=== PATIENT | male | born 2000 | race Caucasian/White ===

== ENCOUNTER 2024-12-19 09:30 | Emergency (ER) | payer OTHER, SELFPAY ==
--- NOTE | 2024-12-19 09:38 | ED_ITS ---
HPI - General Adult General Chief complaint: Back Pain/Injury Stated complaint: Lower back pain Time Seen by Provider: 12/19/24 09:38 Source: patient and silk hanger (all interactions with this patient were facilitated with an [facility] bacteriologist soil) Mode of arrival: ambulatory Limitations: language barrier (all interactions with this patient were facilitated with an [facility] bacteriologist soil) History of Present Illness ED Provider: Anette Grijalva PA-C HPI narrative: Patient is a 24 year old assigned male at with a history of low back pain with lifting presenting to the emergency department today with an episode of low back pain with lifting. Patient states that he was lifting heavy items at work and developed pain in his low back. Patient denies any dizziness, lightheadednes s, abdominal pain, nausea, vomiting, fever, chills, blurry vision, double vision, loss of vision, chest pain, difficulty breathing, shortness of breath, night sweats, pain with urination, increased urinary frequency, increased urinary urgency, blood in his urine or stool, syncope or a near syncopal episode, bowel incontinence, bladder incontinence, or any other complaints at this time. Relieving factors: none Exacerbating factors: none Associated symptoms: denies other symptoms Treatments prior to arrival: none Related Data Previous Rx's ?Medication ?Instructions ?Recorded cyclobenzaprine 5 mg tablet 5 mg PO TID PRN muscle spa sm 7 12/19/24 days #21 tabs prednisone 20 mg tablet 20 mg PO DAILY 7 days #7 tab s 12/19/24 Allergies Allergy/AdvReac Type Severity Reaction Status Date / Time No Known Allergies Allergy Verified 12/19/24 09:56 Review of Systems Constitutional: Constitutional: Reports no additional constitutional complaints, Denies chills, Denies fever(s) and Denies night sweats Eyes: Eyes: Reports no additional eye complaints, Denies blurry vision, Denies change in vision, Denies diplopia, Denies eye discharge, Denies loss of vision and Denies eye pain ENT: Denies dizziness Cardiovascular: Cardiovascular: Reports no additional cardiovascular complaints, Denies chest pain, Denies lightheadedness, Denies Loss of Consciousness and Denies dyspnea Respiratory: Respiratory: Reports no additional respiratory complaints and Denies dyspnea Gastrointestinal: Gastrointestinal: Reports no additional gastrointestinal complaints, Denies abdominal pain, Denies melena, Denies hematochezia, Denies change in bowel habits and Denies change in stool character Genitourinary: Genitourinary: Reports no additional male genitourinary complaints, Denies hematuria, Denies oliguria, Denies difficulty urinating, Denies dysuria, Denies urinary frequency, Denies urinary hesitancy, Denies urinary incontinence and Denies urinary urgency Musculoskeletal: Musculoskeletal: Reports no additional musculoskeletal complaints, Reports back pain, Denies numbness and Denies tingling Neurologic: Denies dizziness, Denies loss of vision, Denies numbness and Denies tingling Psychiatric: Psychiatric: Reports no additional psychiatric complaints Endocrine: Endocrine: Reports no additional endocrine complaints Hematologic/Lymphatic: Hematologic/Lymphatic: Reports no additional hematologic/lymphatic complaints Allergic/Immunologic: Allergic/Immunologic: Reports no additional allergic/immunologic complaints PMFSH Past Medical History Attestation statement: The following information was validated with the patient. Source: old records reviewed and nursing notes reviewed Social History Social History Alcohol intake: current Smoked in Last 30 Days: No Use of substances other than those prescribed or required for medical reasons: No Advance Directives: No Advance Directives Information Provided: Yes Physical Exam ED Vital Signs: Vital Signs - 24 hr 12/19/24 09:54 12/19/24 10:30 Temperature 97.6 F 97.6 F Pulse Rate 61 61 Respiratory Rate 16 16 Blood Pressure 109/83 109/83 Pulse Oximetry 96 96 Oxygen Delivery Method Room Air Room Air BMI result Body Mass Index 32.0 Const General: cooperative, no acute distress, alert and awake Nutritional Appearance: well nourished Orientation/consciousness: patient oriented x3 HENMT Head: Yes normal to inspection and Yes atraumatic Ears: hearing grossly normal bilaterally and external ears normal General nose exam: Normal external nose present, no nasal discharge noted and no epistaxis Face and sinus: Yes normal facial exam, No abrasion and No laceration Mouth: Normal oral and palatal mucosa present, no drooling and no muffled voice Eyes General: appearance normal, both eyes and all related structures Periorbital: periorbital findings normal Eyelids: Yes eyelids normal Conjunctivae: conjunctivae normal Pupils: Equal, round and reactive pupils present EOM: EOMs intact bilaterally Neck Neck: Yes normal visual inspection, Yes full ROM and Yes no lymphadenopathy Resp Effort & Inspection: normal respiratory effort and able to speak in complete sentences Neuro General: patient oriented x3, moves all extremities and CN's II-XI intact bilaterally Cranial nerves: Yes Equal, round and reactive pupils present Cognition (Neuro): normal cognition Extrem General: Yes normal to inspection, Yes full ROM and Yes capillary refill normal Psych Appearance: grossly normal Mental Status: mental status grossly normal Affect: normal affect Attitude: cooperative Thought process: Normal thought process present Thought content: Normal thought content present Insight: Good insight present (Psych) Medical Decision Making Medical Decision Making MDM Narrative: Patient is a 24 year old assigned male at with a history of low back pain with lifting presenting to the emergency department today with an episode of low back pain with lifting. Patient's physical exam was unremarkable. I explained my physical exam findings to the patient. I answered all questions asked by the patient. I stressed the importance of the patient taking his medication as directed (either prescribed or as the over the counter packaging recommends). I stressed the importance of the patient following up with his primary care provider. I stressed the importance of the patient returning to the emergency department immediately if his symptoms were to worsen or if he were to develop any dizziness, shortness of breath, difficulty breathing, chest pain, blurry vision, loss of vision, nausea, vomiting, abdominal pain, fever, chills, back pain, or any other complaints. Patient verbalized agreement and understanding with this treatment plan and discharge. Differential Diagnosis Differential Diagnoses: The differential diagnosis associated with the presentation includes Low back pain Acute on chronic low back pain Low back strain Admission/Observation Consideration of admission/observation: Escalation of care including admission/o bservation considered Patient would have been admitted to the hospital had his clinical presentation warranted hospital admission. Tests considered The following testing was considered but not selected: I considered obtaining a lumbar x-ray however, the patient's current clinical presentation and mechanism of injury did not warrant this. I discussed this with the patient who verbalized understanding and agreement. Prescription Management I considered prescription management with: Pain Medication (patient prescribed pain medication) Discharge Plan Discharge Clinical Impression: Strain of lumbar region Patient Disposition: Home, Self-Care Instructions: Back Pain (ED), Lower Back Exercises (ED) Additional Instructions: Given this was a work place injury - you should follow up with [facility]. Dado que se trat? de aníbal lesi?n en el lugar de trabajo, debe hacer un seguimiento con [facility]. Follow up with your primary care provider. Return to the emergency department immediately if your symptoms worsen or if you develop any dizziness, shortness of breath, difficulty breathing, chest pain, blurry vision, loss of vision, nausea, vomiting, abdominal pain, fever, chills, back pain, or any other complaints. Yu?seguimiento?con perez m?dico de atenci?n primaria. Acuda inmediatamente al servicio de urgencias si jose s?ntomas empeoran o si presenta falta de aliento, dificultad para respirar, dolor tor?cico, mareos, aturdimiento, dolor de espalda, dolor abdominal, fiebre, escalofr?os o cualquier otro s?ntoma. If you do not have a primary care provider - call any of the below numbers to establish and follow up with a primary care provider. Si no tiene un proveedor de atenci?n primaria, llame a cualquiera de los n?meros que aparecen a continuaci?n para establecer y hacer seguimiento con un proveedor de atenci?n primaria. [facility] ([place]) [phone] [address] [facility] [place], [address] [facility] Primary Care ([address] [place]) [phone] [place] [address], [address] [facility], [address] [facility] Care ([address] [place]) [phone] [place] [address], [address] [facility], [address] [facility] Primary Care ([place]) [phone] [place] [address], [address] [facility], [address] [facility] Family Medicine [phone] [place] [address], [address] Please see the information below about our Patient Portal. If you are not yet enrolled in the [facility] Patient Portal, you will receive an enrollment email invitation following your visit to any [facility] care setting. You may also self-enroll in the Patient Portal by visiting our website: [email or web address] The following information is required to access the Patient Portal: - Your [facility] Medical Record Number - Your personal home email address (must match what is in your electronic medical record, Registration staff can assist with this) - Name - Date of Capabilities of the Patient Portal: - Message some providers - View upcoming appointments - Access your health summary, medical history, and visit history - View current conditions and allergies - View procedure and lab results - View your medications, including guidelines, side effects, and precautions - Complete pre-appointment questionnaires requested by your provider - Ready summary reports of your office visits and procedures To access the Patient Portal Mobile Sebastian, follow these directions: - Search Robotgalaxy in the Sebastian Store or [email or web address] Store - Download the Sebastian - Search for [facility] - Enter your login/password Portal del paciente Si usted no esta inscrito en el portal de pacientes de [facility], recibira aníbal invitacion de inscripcion despues de perez visita al [facility] o al [facility] via correo electronico. Tambien puede inscribirse voluntariamente en el portal de pacientes visitando nuestra pagina web: [email or web address] La siguiente informacion sera requerida para acceder al portal: - Perez desiree de historia medica de [facility] - Perez direccion de correo electronico personal - Nombre - Fecha de nacimiento Capacidades: Las siguientes capacidades estan disponibles en el portal de pacientes: - Enviar mensajes a algunos doctores - Verificar proximas citas - Acceso a perez historial de amanda, registro medico e historial de visitas - Omari las condiciones actuales y alergias omari procedimientos y resultados del laboratorio - Omari jose medicamentos, incluyendo las pautas - Efectos secundarios y precauciones - Completar o llenar formularios / cuestionarios de - Citas solicitadas por perez doctor - Leer los resumenes de reportes medicos de jose visitas y procedimientos [place] acceder a la aplicacion movil: - Darren Rally Fite[employer] en la Sebastian Store o Google DA Relm [employer] Store - Descargue la aplicacion - [facility] - Ingrese perez nombre de usuario / Contrasena Prescriptions: New prednisone 20 mg tablet 20 mg PO DAILY 7 Days Qty: 7 0RF cyclobenzaprine 5 mg tablet 5 mg PO TID PRN (Reason: muscle spasm) 7 Days Qty: 21 0RF Referrals: [facility] [Provider Group] Stand Alone Forms: Work/School Release Interventions: ED Discharge Assessment Last Done: 12/19/24 10:30 Discharge Date/Time: 12/19/24 10:31 Print Language: Cambodian
[2024-12-19 09:54] VITALS: BP 109/83; PULSE 61; RESP 16; TEMP 36.4; O2SAT 96; BMI 32.0
--- NOTE | 2024-12-19 10:00 | PC.NURSE ---
Patient presents from work after lifting something heavy and injuring his lower back. Alert and oriented, Primarily arabic speaking. Family Intervention Specialist used. Lungs clear bilat. Respirations even and non-labored. c/o lower back when straightening. Abdomen soft, non-tender with positive bowel sounds. Positive pedal pulses with no edema.
[2024-12-19 10:30] VITALS: BP 109/83; PULSE 61; RESP 16; TEMP 36.4; O2SAT 96
--- OUTSIDE RECORDS SUMMARY | 2024-12-19 11:11 | XMS_ITS | Clinical Summary ---
Author Organization [employer] Address [address] [facility] [address] [place] [address] Care Team Providers Care Residential Real Estate Appraiser Name Role Phone Unavailable Primary Care Provider Unavailabl e Active Problems Problem Noted Date Diagnosed Date Recurrent major depressive disorder 08/22/2024 Social History Tobacco Use Types Packs/Day Years Used Date Smoking Tobacco: Never Assessed Depression Answer Date Recorded Patient Health Questionnaire-9 Score 6 08/22/2024 Patient Health Questionnaire-9 Score 6 08/22/2024 Last PHQ-9: Questionnaire Data Not on file 0 08/22/2024 Depression Answer Date Recorded Patient Health Questionnaire-2 Score 2 08/22/2024 Sex and Gender Information Value Date Recorded Sex Assigned at Male 03/29/2022 10:15 AM EDT Legal Sex Male 10:15 AM EDT Gender Identity Choose not to disclose 10:15 AM EDT Sexual Orientation Choose not to disclose 2021 10:15 AM EDT Plan of Treatment Health Maintenance Due Date Last Done Comments HIV Screening 1998 SDOH Screening 1998 Disability Screening 1998 Alcohol/Substance Use Screening 2010 Tobacco Screening 2010 Family Planning (PISQ) 2013 HPV Vaccines (1 - 3-dose series) 2013 Hepatitis C Screening 2016 DTaP/Tdap/Td Vaccines (1 - Tdap) 2017 Hepatitis B Vaccines (1 of 3 - 19+ 3-dose series) 2017 COVID-19 Vaccine ( - 2023-2 5 season) 2024 Influenza Vaccine (#1) 2025 07/29/2017 Depression Screening 08/22/2025 08/22/2024, 08/22/2024 Zoster Vaccines (1 of 2) 2048 RSV Patients and Patients Aged 60 years or older (1 - 1-dose 75+ series) 2073 HIB Vaccines Aged Out No longer eligi ble based on patient's age to complete this topic Hepatitis A Vaccines Aged Out No long er eligible based on patient's age to complete this topic IPV Vaccines Aged Out No longer eligi ble based on patient's age to complete this topic Meningococcal B Vaccine Aged Out No l onger eligible based on patient's age to complete this topic Meningococcal Vaccine Aged Out No raya solo eligible based on patient's age to complete this topic Pneumococcal Vaccine: Pediatrics (0 to 5 Years) and At-Risk Patients (6 to 49) Years Aged Out No longer eligible b ased on patient's age to complete this topic RSV under 20 months Aged Out No longe r eligible based on patient's age to complete this topic Rotavirus Vaccines Aged Out No longer eligible based on patient's age to complete this topic Insurance [facility]
== END 2024-12-19 10:31 | disposition home or self-care (01) ==
PROVIDERS: Emergency Provider Emergency Medicine
DX: S39.012A Strain of muscle, fascia and tendon of lower back, initial encounter (principal); M54.2 Cervicalgia; X58.XXXA Exposure to other specified factors, initial encounter; Y93.9 Activity, unspecified; Y92.9 Unspecified place or not applicable; Y99.8 Other external cause status
CPT/HCPCS: 99283; 99284

== ENCOUNTER 2025-03-29 13:37 | Outpatient (REF) | payer OTHER, SELFPAY ==
--- NOTE | ~2025-03-29 | XR_ITS ---
EXAMINATION: XR LUMBOSACRAL SPINE CLINICAL INFORMATION: pain with lifting carrying COMPARISON: None available. TECHNIQUE: AP and lateral views. FINDINGS: No acute cortical disruption. 4 m retrolisthesis at L5-S1. Mild S-shaped curvature of the lumbar spine.. No lytic or blastic lesions. XR/XR lumbar spine 2-3V IMPRESSION: Grade 1 retrolisthesis L5-S1. Spondylolysis pars interarticularis cannot be excluded. Electronically signed by: Bruce Ambrosio MD 03/29/2025 03:36 PM EDT
--- OUTSIDE RECORDS SUMMARY | 2025-03-29 13:00 | XMS_ITS | Encounter Summary ---
Author Organization [employer] Address [address] [facility] [address] [place] [address] Care Team Providers Care Chain Maker Hand Name Role Phone Unavailable Primary Care Provider Unavailabl e Reason for Referral * Consultation (Routine) - Pending Review Specialty Diagnoses / Procedures Referred By Hany cuevas Referred To Contact Physical Therapy Diagnoses Chronic left SI joint pain Anitha Rivero MD [address] [place] [phone] Phone: tel: fax: Referral ID Status Reason Start Date Expiration Date Visits Requested Visits Authorized [id number] Pending Review Specialty Services Required 03/29/2026 1 1 Reason for Visit * Reason Comments new pt Encounter Details Date Type Department Care Team (Late st Contact Info) Description 03/29/2025 1:00 PM EDT Office Visit [facility] MEDICINE [address] [place] [phone] Anitha Rivero MD [address] [place] [id number] Chronic left SI joint pain (Primary Dx); Dietary counseling; Exercise counseling; Overweight Social History Tobacco Use Types Packs/Day Years Used Date Smoking Tobacco: Never Assessed Depression Answer Date Recorded Patient Health Questionnaire-9 Score 0 03/29/2025 Patient Health Questionnaire-9 Score 0 03/29/2025 Last PHQ-9: Questionnaire Data Not on file 1 Housing Stability Answer Date Recorded What is your housing situation today? I have cyril avery 03/29/[address] you li ve. Do you have problems with any of the following? None of the above 03/29/2025 Food Insecurity Answer Date Recorded Within the past 12 months, y ou worried that your food would run out before you got money to buy more: Never True 03/29/2025 Within the past 12 months,th e food you bought just didn't last and you didn't have enough money to get more: Never True Transportation Answer Date Recorded In the past 12 months, has l ack of transportation kept you from medical appts, meetings, work or from getting things needed for daily living? No 03/29/2025 Utilities Answer Date Recorded In the past 12 months, has t he electric, gas, oil or water company threatened to shut off services in your home? No 03/29/2025 Depression Answer Date Recorded Patient Health Questionnaire-2 Score 0 03/29/2025 Internet Access Answer Date Recorded Internet Access Q1 No 03/29/2025 Internet Access Q2 I do not want or need it 03/01 Sex and Gender Information Value Date Recorded Sex Assigned at Male 03/29/2022 10:15 AM EDT Legal Sex Male 10:15 AM EDT Gender Identity Choose not to disclose 10:15 AM EDT Sexual Orientation Choose not to disclose 2021 10:15 AM EDT documented as of this encounter Last Filed Vital Signs Vital Sign Reading Time Taken Comments Blood Pressure 100/72 03/29/2025 1:11 PM EDT Pulse 72 03/29/2025 1:11 PM EDT Temperature 36.3 C (97.4 F) 03/29/2025 1:11 PM EDT Respiratory Rate 20 03/29/2025 1:11 PM EDT Oxygen Saturation - - Inhaled Oxygen Concentration - - Weight 105 kg (230 lb 12.8 oz) 03/29/2025 1:11 P M EDT Height 185.4 cm (6' 1 ) 03/29/2025 1:11 PM EDT Body Mass Index 30.45 03/29/2025 1:11 PM EDT documented in this encounter Functional Status * Over the past 2 weeks, how often have you been bothered by any of the following problems? Question Answer Date of Assessment Author Patient Health Questionnaire-2 Score 0 03/01 2:03 PM EDT Mallika Noriega MA * Little interest or pleasure in doing things Answer Date of Assessment Author Not at all 03/29/2025 2:03 PM EDT Mallika Noriega MA * Feeling down, depressed, or hopeless Answer Date of Assessment Author Not at all 03/29/2025 2:03 PM EDT Mallika Noriega MA * Trouble falling or staying asleep, or sleeping too much Answer Date of Assessment Author Not at all 03/29/2025 2:03 PM EDT Mallika Noriega MA * Feeling tired or having little energy Answer Date of Assessment Author Not at all 03/29/2025 2:03 PM EDT Mallika Noriega MA * Poor appetite or overeating Answer Date of Assessment Author Not at all 03/29/2025 2:03 PM EDT Mallika Noriega MA * Feeling bad about yourself - or that you are a failure or have let yourself or your family down Answer Date of Assessment Author Not at all 03/29/2025 2:03 PM EDT Mallika Noriega MA * Trouble concentrating on things, such as reading the newspaper or watching television Answer Date of Assessment Author Not at all 03/29/2025 2:03 PM EDT Mallika Noriega MA * Moving or speaking so slowly that other people could have noticed? Or the opposite - being so fidgety or restless that you have been moving around a lot more than usual. Answer Date of Assessment Author Not at all 03/29/2025 2:03 PM EDT Mallika Noriega MA * Thoughts that you would be better off or hurting yourself in some way Answer Date of Assessment Author Not at all 03/29/2025 2:03 PM EDT Mallika Noriega MA * Patient Health Questionnaire-9 Score Answer Date of Assessment Author 0 03/29/2025 2:03 PM EDT Mallika Noriega MA * Over the last 2 weeks, how often have you been bothered by any of the following problems? Question Answer Date of Assessment Author Feeling nervous, anxious, or on edge 0 03/01 2:04 PM EDT Mallika Noriega MA Not being able to stop or co ntrol worrying 0 03/29/2025 2:04 PM EDT Noriega, Mallika, M A Worrying too much about diff erent things 0 03/29/2025 2:04 PM EDT Noriega, Mallika Charlene A Trouble relaxing 0 03/29/2025 2:04 PM EDT M Mallika de leon MA Being so restless that it is hard to sit still 0 03/29/2025 2:04 PM EDT NoriegaMallika reagan Charlene A Becoming easily annoyed or irritable 0 03/01 2:04 PM EDT Mallika Noriega PUSHPA Feeling afraid as if somethi ng awful might happen 0 03/29/2025 2:04 PM EDT NoriegaMallika M A EMMANUEL-7 Total Score 0 03/29/2025 2:04 PM EDT Mallika Noriega PUSHPA documented as of this encounter Plan of Treatment Scheduled Orders Name Type Priority Associated Diagnoses Orde r Schedule Comprehensive Metabolic Panel Lab Routine Overweight Expected: 03/29/2025 (Approximate), Expires: 03/29/2026 CBC auto differential Lab Routine Overweight Expected: 03/29/2025 (Approximate), Expires: 03/29/2026 XR Lumbar Spine Complete 4+ Views Imaging Routine Chronic left SI joint pain Expected: 03/29/2025, Expires: 03/29/2026 Scheduled Referrals Name Type Priority Associated Diagnoses Orde r Schedule Referral to Physical Therapy Outpatient Referral Routine Chronic left SI joint pain Expected: 03/29/2025 (Approximate), Expires: 03/29/2026 documented as of this encounter Visit Diagnoses Diagnosis Chronic left SI joint pain- Primary Disorders of sacrum Dietary counseling Dietary surveillance and counseling Exercise counseling Overweight documented in this encounter Additional Health Concerns Assessment Noted Time PHQ-9 Depression Total Score: 0 03/29/20 25 2:03 PM EDT documented as of this encounter
--- OUTSIDE RECORDS SUMMARY | 2025-03-29 14:36 | XMS_ITS | Encounter Summary ---
Author Organization [employer] Address [address] [facility] [address] [place] [address] Care Team Providers Care Gear Tester Name Role Phone Unavailable Primary Care Provider Unavailabl e Reason for Visit * Reason Onset Date Comments chart prep 03/28/2025 Encounter Details Date Type Department Care Team ([facility] st Contact Info) Description 03/28/2025 Telephone [facility] MEDICINE [address] [place] [address] Anitha Rivero MD [address] [place] [address] chart prep Social History Tobacco Use Types Packs/Day Years Used Date Smoking Tobacco: Never Assessed Depression Answer Date Recorded Patient Health Questionnaire-9 Score 0 03/29/2025 Patient Health Questionnaire-9 Score 0 03/29/2025 Last PHQ-9: Questionnaire Data Not on file 1 Housing Stability Answer Date Recorded What is your housing situation today? I have cyrilankush avery 03/29/[address] you [...] AM EDT documented as of this encounter Miscellaneous Notes * Telephone Encounter - aJron Sanders MA - 03/28/2025 9:57 AM EDT Chart Prep Labs: not applicable Images: not applicable Referrals: not applicable Vaccines due: Covid, Flu, Hep B, and DTAP Screenings: not applicable Overdue care gaps: SBIRT, SDOH, Disability screen, and Tobacco documented in this encounter Plan of Treatment Not on file documented as of this encounter Visit Diagnoses Not on filedocumented in this encounter Additional Health Concerns Assessment Noted Time PHQ-9 Depression Total Score: 9 01/09/20 25 11:34 AM EDT documented as of this encounter
--- OUTSIDE RECORDS SUMMARY | 2025-03-29 14:36 | XMS_ITS | Encounter Summary ---
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 Role Phone Unavailable Primary Care Provider Unavailabl e Encounter Details Date Type Department Care Team (Latest Contact Info) Description 03/29/2025 Travel Social History Tobacco Use Types Packs/Day Years [...] AM EDT documented as of this encounter Functional Status * Over the [...] ntrol worrying 0 03/29/2025 2:04 PM EDT Mallika Noriega M A Worrying too much about diff erent things 0 03/29/2025 2:04 PM EDT Mallika Noriega M A Trouble relaxing 0 03/29/2025 2:04 PM EDT Mallika Flores MA Being so restless that it is hard to sit still 0 03/29/2025 2:04 PM EDT Mallika Noriega M A Becoming easily annoyed or irritable 0 03/01 2:04 PM EDT Mallika Noriega MA Feeling afraid as if somethi ng awful might happen 0 03/29/2025 2:04 PM EDT Mallika Noriega M A EMMANUEL-7 Total Score 0 03/29/2025 2:04 PM EDT Mallika Noriega MA documented as of this encounter Plan of Treatment Not on file documented as of this encounter Visit Diagnoses Not on filedocumented in this encounter Additional Health Concerns Assessment Noted Time PHQ-9 Depression Total Score: 0 03/29/20 25 2:03 PM EDT documented as of this encounter
--- OUTSIDE RECORDS SUMMARY | 2025-03-29 14:36 | XMS_ITS | Clinical Summary ---
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 No known medications Active Problems Problem Noted Date Diagnosed Date Recurrent major depressive disorder, in partial remission 08/22/2024 Encounters * This document contains information received from the source organization and may not represent a complete record from that organization. Date Type Department Care Team Description 03/29/2025 1:00 PM EDT Office Visit [facility] [address] [place] [phone] Anitha Rivero MD Chronic left SI joint pain (Primary Dx); Dietary counseling; Exercise counseling; Overweight 03/29/2025 Travel 03/28/2025 Telephone [facility] [address] [place] [phone] Anitha Rivero MD chart prep 03/21/2025 Patient Outreach [facility] [address] [place], [place] [phone] Anitha Rivero MD Pre-visit Planning ([facility] unable to reach) 01/31/2025 Telephone [facility] [address] [place] [phone] Donnie Briones MD 01/04/2025 Telephone [facility] [address] [place] [address] [phone] Donnie Briones MD from Last 3 Months Social History Tobacco Use Types Packs/Day Years [...] not to disclose 2021 10:15 AM EDT Last Filed Vital Signs Vital Sign Reading [...] Mass Index 30.45 03/29/2025 1:11 PM EDT Plan of Treatment Health Maintenance Due Date Last Done Comments HIV Screening 1998 Tobacco Screening 2010 Family Planning (PISQ) 2013 HPV Vaccines (1 - 3-dose series) 2013 Hepatitis C Screening 2016 DTaP/Tdap/Td Vaccines (1 - Tdap) 2017 Hepatitis B Vaccines (1 of 3 - 19+ 3-dose series) 2017 COVID-19 Vaccine (1 - 2023-2 5 season) 2025 Influenza Vaccine (#1) 2025 07/29/2017 Alcohol/Substance Use Screening 03/29/2026 03/29/2025 Depression Screening 03/29/2026 03/29/2025, 03/29/2025 Disability Screening 03/29/2026 03/29/2025 SDOH Screening 03/29/2026 03/29/2025 Zoster Vaccines (1 of 2) 2048 RSV [...] to complete this topic Insurance [facility]
[2025-03-29 16:03] LABS: MANUAL DIFF FLAG NO
[2025-03-29 16:12] LABS: Hematocrit 43.8 % (42.0-52.0); Hemoglobin 14.6 g/dl (14.0-18.0); Imm Gran Abs Auto 0.01 X10*3/uL (0.00-0.03); Imm Gran Pct Auto 0.2 % (0.0-0.4); Lymphocytes Absolute Auto 2.3 X10*3/uL (1.2-4.9); Mean Corpuscular HGB Conc 33.3 g/dl (31.0-36.0); Mean Corpuscular Hemoglobin 29.5 pg (27.0-33.0); Mean Corpuscular Volume 88.5 fL (80.0-98.0); NRBC Abs Auto 0.000 X10*3/uL (0.0-0.012); NRBC Pct Auto 0.0 /100WBC (0.0-0.2); Platelet Count 403 X10*3/uL (160-400); Red Blood Count 4.95 X10*6/uL (4.60-5.80); White Blood Count 6.1 X10*3/uL (4.8-10.8)
[2025-03-29 16:28] LABS: Albumin Level 5.3 g/dL (3.5-5.0); Alkaline Phosphatase 48 U/L (39-117); Anion Gap 13 (12-20); Aspartate Amino Transferase 30 U/L (5-37); Blood Urea Nitrogen 23 mg/dL (9-16); Calcium 10.4 mg/dL (8.4-10.2); Carbon Dioxide 27 mmol/L (22-29); Chloride 105 mmol/L (96-108); Estimated Glomerular Filt Rate > 60; Potassium 4.4 mmol/L (3.3-5.1); Sodium 141 mmol/L (135-145); Total Protein 8.4 g/dL (6.5-8.0)
[2025-03-29 16:40] LABS: Alanine Aminotransferase 32 U/L (0-40)
== END 2025-03-29 13:38 | disposition home or self-care (01) ==
LOC: HO.HHCX 13:37
PROVIDERS: PCP General Practice; Visit Provider General Practice
DX: G89.29 Other chronic pain (principal); M53.3 Sacrococcygeal disorders, not elsewhere classified; E66.3 Overweight
CPT/HCPCS: 36415; 72100; 80053; 85025